=== PATIENT | male | born 1990 | race Caucasian/White ===

== ENCOUNTER → 2019-11-17 14:00 | Outpatient (CLI) | payer BC, SELFPAY ==
--- NOTE | ~2019-11-17 | XR_ITS ---
XR wrist RT min 3V DATE: 11/17/2019 14:34 INDICATION: Right wrist pain TECHNIQUE: 4 views COMPARISON: None FINDINGS: No fracture or dislocation, periosteal reaction or bone destruction. IMPRESSION: Negative Reviewed, dictated and finalized at location B. IMPRESSION: Negative
== END ==
PROVIDERS: PCP Family Medicine; Visit Provider Physician Assistant
DX: M25.539 Pain in unspecified wrist (principal)
CPT/HCPCS: 73110

== ENCOUNTER 2023-12-02 16:37 | Emergency (ER) | payer OTHER, BC, SELFPAY ==
[2023-12-02 16:39] VITALS: BP 143/82; PULSE 109; RESP 20; TEMP 36.9; O2SAT 98
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
[2023-12-02] MEDS: SILVER SULFADIAZINE 1% CR 50 GM JAR (*BKC) 1 APPLIC TOPICAL (18:55)
[2023-12-02] MEDS: TETANUS,DIPHTHERIA,AC PERTUSSIS ADULT (0.5 ML) BOOSTRIX IM (19:23)
[2023-12-02 19:26] VITALS: BP 136/89; PULSE 82; RESP 18; O2SAT 97
== END 2023-12-02 19:30 | disposition home or self-care (01) ==
LOC: ANHED 19:07
PROVIDERS: Emergency Provider Physician Assistant; PCP Family Medicine
DX: T65.891A Toxic effect of other specified substances, accidental (unintentional), initial encounter (principal); T21.52XA Corrosion of first degree of abdominal wall, initial encounter; T32.0 Corrosions involving less than 10% of body surface; Z23 Encounter for immunization; F17.290 Nicotine dependence, other tobacco product, uncomplicated
CPT/HCPCS: 16000; 90471; 90715; 99283; A9270